=== PATIENT | male | born 1950 | race Caucasian/White ===

== ENCOUNTER 2018-03-01 00:18 | Observation (INO) | payer MEDICARE ==
[2018-03-01] MEDS ORDERED: Sodium Chloride 0.9% 1000 ML 1,000 ML ONE ×2 (01:04→02:14)
[2018-03-01] MEDS ORDERED: Sodium Chloride 0.9% 1000 ML 1,000 ML IV STA (01:07)
[2018-03-01] MEDS ORDERED: TYLENOL 325 MG PO STA (01:10)
[2018-03-01] MEDS ORDERED: Levofloxacin 500MG/100ML D5W 500 MG/100 ML BAG IV STA (01:10)
[2018-03-01] MEDS ORDERED: Sodium Chloride 0.9% 1000 ML 1,000 ML IV SCH ×2 (01:15→03:45)
[2018-03-01] MEDS ORDERED: Levofloxacin 500MG/100ML D5W 500 MG/100 ML BAG IV ONE (01:20)
[2018-03-01] MEDS ORDERED: TYLENOL 325 MG ONE (01:20)
[2018-03-01 01:25] LABS: INR 1.06 (0.8-3.0)
[2018-03-01 01:28] LABS: BASOPHIL % 0.1 % (0.0-0.4); Basophil (Absolute #) 0.01 (0-0.4); Eosinophil % 0.9 % (0.00-5.0); Eosinophil (Absolute #) 0.09 (0-0.5); Granulocyte Absolute (ANC) 7.89 (1.4-6.9); Granulocytes % 75.3 % (36.0-66.0); Hematocrit 44.2 % (42-50); Hemoglobin 15.4 gm/dl (12.5-18.0); Lymphocyte (Absolute #) 1.53 (1.0-4.6); Lymphocytes % 14.6 % (24.0-44.0); Mean Cell Volume 95.9 fl (78-100); Mean Corpuscular Hemoglobin 33.4 pg (26-32); Mean Corpuscular Hgb Concent. 34.8 g/dl (32-36); Mean Platelet Volume 10.5 fl (6-9.5); Monocyte (Absolute #) 0.95 (0.0-1.3); Monocytes % 9.1 % (0.0-12.0); Platelet Count 306 K/mm3 (150-450); Red Blood Count 4.61 M/mm3 (4.1-5.6); Red Cell Distribution Width 13.8 % (11.5-14.0); White Blood Count 10.5 K/mm3 (4.0-10.5)
[2018-03-01 01:30] LABS: ALBUMIN 4.1 g/dL (3.5-5.0); ALKALINE PHOSPHATASE 131 U/L (38-126); ANION GAP 13.7 MEQ/L (5-15); BLOOD UREA NITROGEN 18 mg/dL (9-20); CHLORIDE 104 mmol/L (98-107); Calcium 9.4 mg/dL (8.4-10.2); Carbon Dioxide 28 mmol/L (22-30); Glucose 107 mg/dL (74-106); Potassium 4.4 mmol/L (3.5-5.1); SGOT/AST 17 U/L (17-59); SGPT/ALT 18 U/L (0-50); SODIUM 141 mmol/L (137-145); Total Protein 7.6 g/dL (6.3-8.2)
--- NOTE | 2018-03-01 02:27 | ERPHSYRPT ---
- History of Present Illness Time Seen by Provider: 03/01/18 00:35 Source: [facility] records Exam Limitations: clinical condition Patient Subjective Stated Complaint: per pts nurse at mo, pt had temp of 102.4 tympanic tonight and has only had 25cc of urine from suprapubic cath in last 24 hours. states he has had leaking around cath and has redness to skin around suprapubic cath. Triage Nursing Assessment: pt awake. curses occasionally, no speaking otherwise. pt restless in bed. lt arm contraced. bilat foot drop noted. respirations nonlabored with lungs cta. suprapubic cath in place with no drainage noted in tubing. strong urine odor noted from pt. redness and excoriation noted around suprapubic cath. redness noted to bilat elbows. Physician History: PATIENT, A RESIDENT OF [employer], WITH HISTORY OF ANOXIA BRAIN SYNDROME, DEMENTIA, NEUROGENIC BLADDER, SUPRAPUBIC CATHETER WITH DRAINAGE FROM SITE, URINE AROUND CATHETER, FOUL ODOR WITH DECREASED URINE OUTPUT THROUGH CATHETER. HAS ASSOCIATED LOW GRADE FEVER. Timing/Duration: day(s) Activites at Onset: none Pain Radiation: none Severity of Pain-Max: none Severity of Pain-Current: none Associated Symptoms: fever Prior abdominal problems: none Sexual intercourse history: non-contributory Allergies/Adverse Reactions: tuberculin, purified protein deriva Allergy (Verified 03/01/18 01:02) Hx Tetanus, Diphtheria Vaccination/Date Given: No (uk) Hx Influenza Vaccination/Date Given: No (uk) Hx Pneumococcal Vaccination/Date Given: No (uk) Immunizations Up to Date: No () - Past Medical History Pertinent Past Medical History: Yes Neurological History: Dementia, Other History: Other Other Medical History: anoxic brain damage, 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 vascular dementia - Past Surgical History Other Surgical History: suprapubic cath placed- unknown what other surgeries pt has had. - Social History Smoking Status: Unknown if ever smoked Exposure to second hand smoke: No Drug Use: none Patient Lives Alone: No (from [facility]) - Review of Systems Constitutional: Fever Eyes: No Symptoms Ears, Nose, & Throat: No Symptoms Respiratory: No Symptoms, No Cough, No Dyspnea Cardiac: No Symptoms, No Chest Pain, No Edema, No Syncope Abdominal/Gastrointestinal: No Symptoms, No Abdominal Pain, No Nausea, No Vomiting, No Diarrhea Genitourinary Symptoms: Other, No Dysuria Musculoskeletal: No Symptoms, No Back Pain, No Neck Pain Skin: No Rash Neurological: No Dizziness, No Focal Weakness, No Sensory Changes Psychological: No Symptoms Endocrine: No Symptoms All Other Systems: Reviewed and Negative - Nursing Vital Signs Nursing Vital Signs: Initial Vital Signs Temperature 100.4 F 03/01/18 00:26 Pulse Rate 113 H 03/01/18 00:26 Respiratory Rate 18 03/01/18 00:26 Blood Pressure 122/73 03/01/18 00:26 O2 Sat by Pulse Oximetry 95 03/01/18 00:26 - Physical Exam General Appearance: no apparent distress, alert Eye Exam: PERRL/EOMI Ears, Nose, Throat Exam: pharynx normal, moist mucous membranes Neck Exam: normal inspection, supple Respiratory Exam: normal breath sounds, lungs clear Cardiovascular Exam: regular rate/rhythm, No edema Gastrointestinal/Abdomen Exam: soft (NO SUPRAPUBIC DISTENTION), normal bowel sounds, other (ERYTHRMA AROUND SUPRAPUBIC SITE), No tenderness Back Exam: normal inspection, No CVA tenderness Extremity Exam: normal inspection, normal range of motion, No pedal edema Neurologic Exam: alert, oriented x 3, cooperative, sensation nml, No motor deficits Skin Exam: normal color, warm, dry, No rash SpO2: 96 Oxygen Delivery: Room Air - Course EKG Interpreted by Me: RATE, Sinus Rhythm, Sinus Tach (RATE 104), NORMAL AXIS - Radiology Exams Chest X-ray Interpretation: Interpreted by me (LEFT INFRAHILAR INFILTRATE) Ordered Tests: Active Orders 24 hr Category Date Time Status EKG-ER Only STAT Care 03/01/18 01:10 Active IV Insertion STAT Care 03/01/18 01:10 Active CHEST 1 VIEW (PORTABLE) Stat Exams 03/01/18 01:11 Taken BLOOD CULTURE Stat Lab 03/01/18 01:21 Received CBC W DIFF Stat Lab 03/01/18 00:50 Completed CMP Stat Lab 03/01/18 00:50 Completed CULTURE,URINE Stat Lab 03/01/18 02:57 Received CULTURE,WOUND Stat Lab 03/01/18 01:51 Received Lactic Acid Stat Lab 03/01/18 01:07 Completed PROTIME WITH INR Stat Lab 03/01/18 00:50 Completed TROPONIN Q3H Lab 03/01/18 01:21 Completed TROPONIN Q3H Lab 03/01/18 04:15 Ordered TROPONIN Q3H Lab 03/01/18 07:15 Ordered TROPONIN Q3H Lab 03/01/18 10:15 Ordered TROPONIN Q3H Lab 03/01/18 13:15 Ordered UA W/ MICROSCOPIC Stat Lab 03/01/18 02:57 Completed Medication Summary Generic Name Dose Route Start Last Admin Trade Name Freq PRN Reason Stop Dose Admin Sodium Chloride 1,000 mls @ 999 mls/hr 03/01/18 01:15 03/01/18 03:13 Sodium Chloride 0.9% 1000 Ml IV 03/01/18 03:15 999 mls/hr .Q1H1M LEILA Administration Discontinued Medications Generic Name Dose Route Start Last Admin Trade Name Freq PRN Reason Stop Dose Admin Acetaminophen 650 mg 03/01/18 01:10 03/01/18 01:20 Tylenol 325 Mg PO 03/01/18 01:11 650 mg STAT STA Administration Acetaminophen Confirm 03/01/18 01:20 Tylenol 325 Mg Administered 03/01/18 01:21 Dose 650 mg .ROUTE .STK-MED ONE Sodium Chloride Confirm 03/01/18 01:04 Sodium Chloride 0.9% 1000 Ml Administered 03/01/18 01:05 Dose 1,000 mls @ ud .ROUTE .STK-MED ONE Sodium Chloride 1,000 mls @ 999 mls/hr 03/01/18 01:07 03/01/18 01:17 Sodium Chloride 0.9% 1000 Ml IV 03/01/18 02:07 999 mls/hr .Q1H1M STA Administration Levofloxacin/Dextrose 500 mg in 100 mls @ 100 mls/hr 03/01/18 01:10 03/01/18 01:21 Levofloxacin 500mg/100ml D5w IV 03/01/18 02:09 100 ml/hr STAT STA 100 mls/hr Administration Levofloxacin/Dextrose Confirm 03/01/18 01:20 Levofloxacin 500mg/100ml D5w Administered 03/01/18 01:21 Dose 500 mg in 100 mls @ ud IV .STK-MED ONE Lab/Rad Data: Laboratory Result Diagrams 03/01/18 00:50 03/01/18 00:50 Laboratory Results 03/01/18 03/01/18 03/01/18 Range/Units 02:57 01:21 01:07 WBC (4.0-10.5) K/mm3 RBC (4.1-5.6) M/mm3 Hgb (12.5-18.0) gm/dl Hct (42-50) % MCV (78-100) fl MCH (26-32) pg MCHC (32-36) g/dl RDW (11.5-14.0) % Plt Count (150-450) K/mm3 MPV (6-9.5) fl Gran % (36.0-66.0) % Eos # (Auto) (0-0.5) Absolute Lymphs (auto) (1.0-4.6) Absolute Monos (auto) (0.0-1.3) Lymphocytes % (24.0-44.0) % Monocytes % (0.0-12.0) % Eosinophils % (0.00-5.0) % Basophils % (0.0-0.4) % Absolute Granulocytes (1.4-6.9) Basophils # (0-0.4) PT (8.83-12.87) SECONDS INR (0.8-3.0) Sodium (137-145) mmol/L Potassium (3.5-5.1) mmol/L Chloride (98-107) mmol/L Carbon Dioxide (22-30) mmol/L Anion Gap (5-15) MEQ/L BUN (9-20) mg/dL Creatinine (0.66-1.25) mg/dL Estimated GFR ML/MIN Glucose (74-106) mg/dL Lactic Acid 1.3 (0.4-2.0) Calcium (8.4-10.2) mg/dL Total Bilirubin (0.2-1.3) mg/dL AST (17-59) U/L ALT (0-50) U/L Alkaline Phosphatase (38-126) U/L Troponin I < 0.012 (0.000-0.034) ng/mL Serum Total Protein (6.3-8.2) g/dL Albumin (3.5-5.0) g/dL Ur Collection Type VOID Urine Color YELLOW (YELLOW) Urine Appearance SLIGHTLY CLOUDY (CLEAR) Urine pH 8.0 (5-6) Ur Specific Chicken 1.005 (1.005-1.025) Urine Protein TRACE (Negative) Urine Ketones NEGATIVE (NEGATIVE) Urine Blood 250 (0-5) Lele/ul Urine Nitrite POSITIVE (NEGATIVE) Urine Bilirubin NEGATIVE (NEGATIVE) Urine Urobilinogen NORMAL (0-1) mg/dL Ur Leukocyte Esterase 2+ (NEGATIVE) Urine Microscopic RBC 15-25 (0-2) /HPF Urine Microscopic WBC 50-100 (0-5) /HPF Ur Epithelial Cells MODERATE (FEW) /HPF Urine Bacteria PACKED (NEGATIVE) /HPF Urine Mucus MODERATE (NEGATIVE) /HPF Urine Culture Reflexed YES (NO) Urine Glucose NEGATIVE (NEGATIVE) mg/dL 03/01/18 03/01/18 03/01/18 Range/Units 00:50 00:50 00:50 WBC 10.5 (4.0-10.5) K/mm3 RBC 4.61 (4.1-5.6) M/mm3 Hgb 15.4 (12.5-18.0) gm/dl Hct 44.2 (42-50) % MCV 95.9 (78-100) fl MCH 33.4 H (26-32) pg MCHC 34.8 (32-36) g/dl RDW 13.8 (11.5-14.0) % Plt Count 306 (150-450) K/mm3 MPV 10.5 H (6-9.5) fl Gran % 75.3 H (36.0-66.0) % Eos # (Auto) 0.09 (0-0.5) Absolute Lymphs (auto) 1.53 (1.0-4.6) Absolute Monos (auto) 0.95 (0.0-1.3) Lymphocytes % 14.6 L (24.0-44.0) % Monocytes % 9.1 (0.0-12.0) % Eosinophils % 0.9 (0.00-5.0) % Basophils % 0.1 (0.0-0.4) % Absolute Granulocytes 7.89 H (1.4-6.9) Basophils # 0.01 (0-0.4) PT 12.3 (8.83-12.87) SECONDS INR 1.06 (0.8-3.0) Sodium 141 (137-145) mmol/L Potassium 4.4 (3.5-5.1) mmol/L Chloride 104 (98-107) mmol/L Carbon Dioxide 28 (22-30) mmol/L Anion Gap 13.7 (5-15) MEQ/L BUN 18 (9-20) mg/dL Creatinine 0.90 (0.66-1.25) mg/dL Estimated GFR > 60.0 ML/MIN Glucose 107 H (74-106) mg/dL Lactic Acid (0.4-2.0) Calcium 9.4 (8.4-10.2) mg/dL Total Bilirubin 0.30 (0.2-1.3) mg/dL AST 17 (17-59) U/L ALT 18 (0-50) U/L Alkaline Phosphatase 131 H (38-126) U/L Troponin I (0.000-0.034) ng/mL Serum Total Protein 7.6 (6.3-8.2) g/dL Albumin 4.1 (3.5-5.0) g/dL Ur Collection Type Urine Color (YELLOW) Urine Appearance (CLEAR) Urine pH (5-6) Ur Specific Chicken (1.005-1.025) Urine Protein (Negative) Urine Ketones (NEGATIVE) Urine Blood (0-5) Lele/ul Urine Nitrite (NEGATIVE) Urine Bilirubin (NEGATIVE) Urine Urobilinogen (0-1) mg/dL Ur Leukocyte Esterase (NEGATIVE) Urine Microscopic RBC (0-2) /HPF Urine Microscopic WBC (0-5) /HPF Ur Epithelial Cells (FEW) /HPF Urine Bacteria (NEGATIVE) /HPF Urine Mucus (NEGATIVE) /HPF Urine Culture Reflexed (NO) Urine Glucose (NEGATIVE) mg/dL - Progress Progress: pain not gone completely Progress Note: 03/01/18 02:44 AFTER 2 SETS OF BLOOD CULTURE ADMINISTERED LEVAQUIN 500MG IVPB , PLACED ONTO SEPSIS PROTOCOL NORMAL SALINE 2 LITERS OVER 2 HOURS, LACTIC ACID 1.3, TAKEN OFF SEPSIS PROTOCOL Discussed with : Desean (DISCUSSED WITH DR LOVELACE AT 0330 FOR OBSERVATION) - Departure Time of Disposition: 03:40 Departure Disposition: Observation Clinical Impression: URINARY TRACT INFECTION, SUPRAPUBIC CELLULITIS Condition: Stable Critical Care Time: No Referrals: AYSE CLEMENT [Primary Care Provider] -
[2018-03-01 03:16] LABS: Appearance SLIGHTLY CLOUDY (CLEAR); Specific Gravity 1.005 (1.005-1.025)
[2018-03-01 03:17] LABS: Bacteria PACKED /HPF (NEGATIVE); Bilirubin NEGATIVE (NEGATIVE); Blood 250 Ery/ul (0-5); Epithelial Cells MODERATE /HPF (FEW); Glucose NEGATIVE (NEGATIVE); Ketones NEGATIVE (NEGATIVE); Leukocyte Esterase 2+ (NEGATIVE); Mucus MODERATE /HPF (NEGATIVE); Nitrite POSITIVE (NEGATIVE); Protein,Urine Dip TRACE (Negative); RBC 15-25 /HPF (0-2); Urobilinogen NORMAL mg/dL (0-1); WBC 50-100 /HPF (0-5)
[2018-03-01] MEDS ORDERED: TYLENOL 325 MG PO PRN ×2 (03:41→09:24)
[2018-03-01] MEDS ORDERED: Norco 10/325 MG Tablet PO PRN (03:45)
[2018-03-01] MEDS ORDERED: Cyclobenzaprine 10 MG PO PRN (03:46)
--- NOTE | 2018-03-01 07:55 | PCM.HP ---
History of Present Illness - Chief Complaint Chief Complaint: UTI, suprapubic cellulitis Date: 03/01/18 History of Present Illness: is a 67 year old male. with history of anoxic brain injury many years ago has been a ferry terminal agent resident at [facility] and has a suprapubic catheter that has been intermittently leaking for several years and yesterday he was noted to be more somnolent not eating or drinking and a fever to 102. He was only making small amount of urine from the patel reported as 25 cc at [facility]. He had catheter flushing attempted with no change in urine output. he was sent to ED. He was diagnosed with cellulites around the suprapubic site and UTI and admitted. He currently opens his eyes and tracks but does not answer any specific questions. - Review of Systems Constitutional: Other (unable to obtain secondary to mental status) Medications & Allergies Home Medications: Home Medication List Acetaminophen 325 mg [Tylenol 325 mg] 650 mg PO Q6HPRN PRN 03/01/18 [ History Confirmed 03/01/18] Amantadine HCl [Amantadine] 100 mg PO BID 03/01/18 [History Confirmed 03/01/18] Bisacodyl 10 mg PO DAILY PRN PRN 03/01/18 [History Confirmed 03/01/18] Bisacodyl 10 mg [Dulcolax 10 MG SUPP] 10 mg OH UD PRN 03/01/18 [History Confirmed 03/01/18] Cyclobenzaprine HCl [Flexeril] 10 mg PO TID 03/01/18 [History Confirmed 03/01/18 ] Divalproex Sodium [Depakote Sprinkle] 375 mg PO BID 03/01/18 [History Confirmed 03/01/18] Divalproex Sodium [Depakote Sprinkle] 500 mg PO DAILY 03/01/18 [History Confirmed 03/01/18] Docusate Sodium 50 mg/5 ml [COLACE Liquid 50 MG/5 ML] 10 ml PO BID [History Confirmed 03/01/18] Furosemide 20 mg [Lasix 20 mg] 20 mg PO DAILY 03/01/18 [History Confirmed 03/01/18] Hydrocodone/Acetaminophen [Hydrocodone-Acetamin 10-325 mg] 1 tab PO QID [History Confirmed 03/01/18] Magnesium Hydroxide 30 ml [Milk of Magnesia 30 ml] 30 ml PO UD PRN [History Confirmed 03/01/18] Multivit-Min/FA/Lycopen/Lutein [Certavite Sr-Antioxidant Tab] 1 tab PO DAILY [History Confirmed 03/01/18] NaCl 0.9% 10 ML FLUSH [Sodium Chloride 0.9% 10 ML FLUSH Syringe] 30 ml IRRIGATION UD PRN 03/01/18 [History Confirmed 03/01/18] Polyethylene Glycol 3350 17 gm [Miralax Powder 17GM PACKET] 17 gm PO DAILY [History Confirmed 03/01/18] Promethazine HCl [Promethegan] 25 mg RC Q4HPRN PRN 03/01/18 [History Confirmed 03/01/18] Ranitidine HCl [Zantac] 150 mg PO DAILY 03/01/18 [History Confirmed 03/01/18] Sennosides [Senna] 17.2 mg PO DAILY 03/01/18 [History Confirmed 03/01/18] diazePAM [Diazepam] 10 mg PO TID 03/01/18 [History Confirmed 03/01/18] Allergies/Adverse Reactions: Allergies Allergy/AdvReac Type Severity Reaction Status Date / Time tuberculin, purified protein Allergy Verified 03/01/18 01:02 deriva - Past Medical History Past Medical History: Yes Neurological History: Dementia, Other History: Other Comment: anoxic brain damage, 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 vascular dementia. recalled from ER/[facility] record - Past Surgical History Other Surgical History: suprapubic cath placed- unknown what other surgeries pt has had. recalled from ER/[facility] record - Social History Smoking Status: Unknown if ever smoked Exposure to second hand smoke: No Alcohol: None Drug Use: none - Physical Exam Vital Signs: Vital Signs - 24 hr Temp Pulse Resp BP Pulse Ox 03/01/18 07:14 97.3 F 91 H 18 97/53 97 03/01/18 04:47 98.8 F 112 H 19 130/87 95 03/01/18 03:54 96 03/01/18 03:05 94 H 22 105/68 95 03/01/18 01:44 107 H 18 112/74 96 03/01/18 00:26 100.4 F 113 H 18 122/73 95 General Appearance: no apparent distress, alert Neurologic Exam: No oriented x 3, No cooperative Eye Exam: eyes nml inspection, No scleral icterus, No pale conjunctivae Ears, Nose, Throat Exam: moist mucous membranes Neck Exam: non-tender, supple Respiratory Exam: normal breath sounds, lungs clear, No respiratory distress Cardiovascular Exam: regular rate/rhythm, normal heart sounds, normal peripheral pulses, No edema Gastrointestinal/Abdomen Exam: soft, normal bowel sounds, tenderness, No distention, No guarding Male Genitalia Exam: other (warty growth at site of suprapubic catheter with redness and purulent drainage around the catheter site with catheter with about 25 cc of milky yellow urine) Extremity Exam: normal inspection, No calf tenderness, No pedal edema Skin Exam: normal color, warm, dry, other (redness and warmth around the suprapubic catheter site.) Results - Labs Lab/Micro Results: Lab Results-Last 24 Hours 03/01/18 03/01/18 03/01/18 Range/Units 00:50 00:50 00:50 WBC 10.5 (4.0-10.5) K/mm3 RBC 4.61 (4.1-5.6) M/mm3 Hgb 15.4 (12.5-18.0) gm/dl Hct 44.2 (42-50) % MCV 95.9 (78-100) fl MCH 33.4 H (26-32) pg MCHC 34.8 (32-36) g/dl RDW 13.8 (11.5-14.0) % Plt Count 306 (150-450) K/mm3 MPV 10.5 H (6-9.5) fl Gran % 75.3 H (36.0-66.0) % Eos # (Auto) 0.09 (0-0.5) Absolute Lymphs (auto) 1.53 (1.0-4.6) Absolute Monos (auto) 0.95 (0.0-1.3) Lymphocytes % 14.6 L (24.0-44.0) % Monocytes % 9.1 (0.0-12.0) % Eosinophils % 0.9 (0.00-5.0) % Basophils % 0.1 (0.0-0.4) % Absolute Granulocytes 7.89 H (1.4-6.9) Basophils # 0.01 (0-0.4) PT 12.3 (8.83-12.87) SECONDS INR 1.06 (0.8-3.0) Sodium 141 (137-145) mmol/L Potassium 4.4 (3.5-5.1) mmol/L Chloride 104 (98-107) mmol/L Carbon Dioxide 28 (22-30) mmol/L Anion Gap 13.7 (5-15) MEQ/L BUN 18 (9-20) mg/dL Creatinine 0.90 (0.66-1.25) mg/dL Estimated GFR > 60.0 ML/MIN Glucose 107 H (74-106) mg/dL Lactic Acid (0.4-2.0) Calcium 9.4 (8.4-10.2) mg/dL Total Bilirubin 0.30 (0.2-1.3) mg/dL AST 17 (17-59) U/L ALT 18 (0-50) U/L Alkaline Phosphatase 131 H (38-126) U/L Troponin I (0.000-0.034) ng/mL Serum Total Protein 7.6 (6.3-8.2) g/dL Albumin 4.1 (3.5-5.0) g/dL Ur Collection Type Urine Color (YELLOW) Urine Appearance (CLEAR) Urine pH (5-6) Ur Specific Babb (1.005-1.025) Urine Protein (Negative) Urine Ketones (NEGATIVE) Urine Blood (0-5) Lele/ul Urine Nitrite (NEGATIVE) Urine Bilirubin (NEGATIVE) Urine Urobilinogen (0-1) mg/dL Ur Leukocyte Esterase (NEGATIVE) Urine Microscopic RBC (0-2) /HPF Urine Microscopic WBC (0-5) /HPF Ur Epithelial Cells (FEW) /HPF Urine Bacteria (NEGATIVE) /HPF Urine Mucus (NEGATIVE) /HPF Urine Culture Reflexed (NO) Urine Glucose (NEGATIVE) mg/dL Valproic Acid (50-100) ug/mL 03/01/18 03/01/18 03/01/18 Range/Units 01:07 01:21 02:57 WBC (4.0-10.5) K/mm3 RBC (4.1-5.6) M/mm3 Hgb (12.5-18.0) gm/dl Hct (42-50) % MCV (78-100) fl MCH (26-32) pg MCHC (32-36) g/dl RDW (11.5-14.0) % Plt Count (150-450) K/mm3 MPV (6-9.5) fl Gran % (36.0-66.0) % Eos # (Auto) (0-0.5) Absolute Lymphs (auto) (1.0-4.6) Absolute Monos (auto) (0.0-1.3) Lymphocytes % (24.0-44.0) % Monocytes % (0.0-12.0) % Eosinophils % (0.00-5.0) % Basophils % (0.0-0.4) % Absolute Granulocytes (1.4-6.9) Basophils # (0-0.4) PT (8.83-12.87) SECONDS INR (0.8-3.0) Sodium (137-145) mmol/L Potassium (3.5-5.1) mmol/L Chloride (98-107) mmol/L Carbon Dioxide (22-30) mmol/L Anion Gap (5-15) MEQ/L BUN (9-20) mg/dL Creatinine (0.66-1.25) mg/dL Estimated GFR ML/MIN Glucose (74-106) mg/dL Lactic Acid 1.3 (0.4-2.0) Calcium (8.4-10.2) mg/dL Total Bilirubin (0.2-1.3) mg/dL AST (17-59) U/L ALT (0-50) U/L Alkaline Phosphatase (38-126) U/L Troponin I < 0.012 (0.000-0.034) ng/mL Serum Total Protein (6.3-8.2) g/dL Albumin (3.5-5.0) g/dL Ur Collection Type VOID Urine Color YELLOW (YELLOW) Urine Appearance SLIGHTLY CLOUDY (CLEAR) Urine pH 8.0 (5-6) Ur Specific Babb 1.005 (1.005-1.025) Urine Protein TRACE (Negative) Urine Ketones NEGATIVE (NEGATIVE) Urine Blood 250 (0-5) Lele/ul Urine Nitrite POSITIVE (NEGATIVE) Urine Bilirubin NEGATIVE (NEGATIVE) Urine Urobilinogen NORMAL (0-1) mg/dL Ur Leukocyte Esterase 2+ (NEGATIVE) Urine Microscopic RBC 15-25 (0-2) /HPF Urine Microscopic WBC 50-100 (0-5) /HPF Ur Epithelial Cells MODERATE (FEW) /HPF Urine Bacteria PACKED (NEGATIVE) /HPF Urine Mucus MODERATE (NEGATIVE) /HPF Urine Culture Reflexed YES (NO) Urine Glucose NEGATIVE (NEGATIVE) mg/dL Valproic Acid (50-100) ug/mL 03/01/18 03/01/18 Range/Units 03:58 03:58 WBC (4.0-10.5) K/mm3 RBC (4.1-5.6) M/mm3 Hgb (12.5-18.0) gm/dl Hct (42-50) % MCV (78-100) fl MCH (26-32) pg MCHC (32-36) g/dl RDW (11.5-14.0) % Plt Count (150-450) K/mm3 MPV (6-9.5) fl Gran % (36.0-66.0) % Eos # (Auto) (0-0.5) Absolute Lymphs (auto) (1.0-4.6) Absolute Monos (auto) (0.0-1.3) Lymphocytes % (24.0-44.0) % Monocytes % (0.0-12.0) % Eosinophils % (0.00-5.0) % Basophils % (0.0-0.4) % Absolute Granulocytes (1.4-6.9) Basophils # (0-0.4) PT (8.83-12.87) SECONDS INR (0.8-3.0) Sodium (137-145) mmol/L Potassium (3.5-5.1) mmol/L Chloride (98-107) mmol/L Carbon Dioxide (22-30) mmol/L Anion Gap (5-15) MEQ/L BUN (9-20) mg/dL Creatinine (0.66-1.25) mg/dL Estimated GFR ML/MIN Glucose (74-106) mg/dL Lactic Acid (0.4-2.0) Calcium (8.4-10.2) mg/dL Total Bilirubin (0.2-1.3) mg/dL AST (17-59) U/L ALT (0-50) U/L Alkaline Phosphatase (38-126) U/L Troponin I < 0.012 (0.000-0.034) ng/mL Serum Total Protein (6.3-8.2) g/dL Albumin (3.5-5.0) g/dL Ur Collection Type Urine Color (YELLOW) Urine Appearance (CLEAR) Urine pH (5-6) Ur Specific Babb (1.005-1.025) Urine Protein (Negative) Urine Ketones (NEGATIVE) Urine Blood (0-5) Lele/ul Urine Nitrite (NEGATIVE) Urine Bilirubin (NEGATIVE) Urine Urobilinogen (0-1) mg/dL Ur Leukocyte Esterase (NEGATIVE) Urine Microscopic RBC (0-2) /HPF Urine Microscopic WBC (0-5) /HPF Ur Epithelial Cells (FEW) /HPF Urine Bacteria (NEGATIVE) /HPF Urine Mucus (NEGATIVE) /HPF Urine Culture Reflexed (NO) Urine Glucose (NEGATIVE) mg/dL Valproic Acid 57.8 (50-100) ug/mL - Radiology Impressions Radiology Exams & Impressions: Radiology Procedures Category Date Time Status CHEST 1 VIEW (PORTABLE) Stat Exams 03/01/18 01:11 Taken Assessment/Plan (1) UTI (urinary tract infection) Current Visit: Yes Status: Acute Assessment & Plan: received levaquin and iv fluids in ED currently afebrile will culture the urine has had blood cultures will also culture the drainage around the suprapubic catheter get bladder ultrasound to check to ensure functioning of the catheter Code(s): N39.0 - URINARY TRACT INFECTION, SITE NOT SPECIFIED (2) Cellulitis Current Visit: Yes Status: Acute Qualifiers: Site of cellulitis: trunk Code(s): L03.90 - CELLULITIS, UNSPECIFIED (3) Anoxic brain injury Current Visit: Yes Status: Chronic
--- NOTE | 2018-03-01 08:54 | XRAY ---
Indication: Possible sepsis. Comparison: None Portable chest clear with incidental left mid lung calcified granuloma. Heart is not enlarged. Bony thorax intact with mild osteopenia and degenerative changes. Impression: Nonacute chest with chronic features.
--- NOTE | 2018-03-01 08:56 | XRAY ---
Indication: Decreased urinary output. Two-dimensional ultrasound of the urinary bladder performed. Comparison: None There is a suprapubic catheter in situ. Bladder is nominally distended with a volume 137 cc. No focal bladder mass. Normal bilateral ureteral jets. Impression: Small bladder volume with suprapubic catheter in situ. Remaining bladder sonogram is negative.
[2018-03-01] MEDS ORDERED: DULCOLAX 5 MG PO PRN (09:24)
[2018-03-01] MEDS ORDERED: MILK OF MAGNESIA 30 ML PO PRN (09:24)
[2018-03-01] MEDS ORDERED: MEDICATION INTERVENTION MC SCH (09:45)
[2018-03-01] MEDS ORDERED: COLACE Liquid 50 MG/5 ML PO SCH (10:00)
[2018-03-01] MEDS ORDERED: DIAZEPAM 10 MG PO SCH (10:00)
[2018-03-01] MEDS ORDERED: NON-FORMULARY ITEM (Ranitidine Hcl [Zantac] 150 MG) PO SCH (10:00)
[2018-03-01] MEDS ORDERED: Dulcolax 10 MG SUPP PR SCH (10:00)
[2018-03-01] MEDS ORDERED: Depakene 250 MG/5 ML Syrup PO SCH (10:00)
[2018-03-01] MEDS ORDERED: NON-FORMULARY ITEM (Cyclobenzaprine Hcl [Flexeril] 10 MG) PO SCH (10:00)
[2018-03-01] MEDS ORDERED: DIVALPROEX SODIUM 375 MG PO SCH (10:00)
[2018-03-01] MEDS ORDERED: Miralax Powder 17GM PACKET PO SCH (10:00)
[2018-03-01] MEDS ORDERED: Valium 5 MG PO SCH (10:00)
[2018-03-01] MEDS ORDERED: DIVALPROEX SODIUM 500 MG PO SCH (10:00)
[2018-03-01] MEDS: Valium 5 MG PO SCH ×3 (10:05→22:53)
[2018-03-01] MEDS: Pepcid 20 MG PO SCH (10:05)
[2018-03-01] MEDS: SENOKOT 8.6 MG PO SCH (10:05)
[2018-03-01] MEDS: ENOXAPARIN SODIUM SQ SCH (10:05)
[2018-03-01] MEDS: LASIX 20 MG PO SCH (10:05)
[2018-03-01] MEDS: COLACE Liquid 50 MG/5 ML PO SCH ×2 (10:05→22:13)
[2018-03-01] MEDS: Cyclobenzaprine 10 MG PO SCH ×3 (10:05→22:53)
[2018-03-01] MEDS ORDERED: Levofloxacin 500MG/100ML D5W 500 MG/100 ML BAG IV SCH (22:00)
[2018-03-02 06:59] VITALS: BP 98/53; PULSE 66; O2SAT 98
--- NOTE | 2018-03-02 08:16 | PCM.DCORD ---
- Discharge Discharge Date: 03/02/18 Disposition: DC TO ANY "OTHER" SKILLED NURSING Condition: Stable Prescriptions: New Levofloxacin [Levaquin] 500 mg PO DAILY 8 Days #8 tablet Continue Sennosides [Senna] 17.2 mg PO DAILY Amantadine HCl [Amantadine] 100 mg PO BID Promethazine HCl [Promethegan] 25 mg RC Q4HPRN PRN PRN Reason: Nausea/Vomiting Polyethylene Glycol 3350 17 gm [Miralax Powder 17GM PACKET] 17 gm PO DAILY NaCl 0.9% 10 ML FLUSH [Sodium Chloride 0.9% 10 ML FLUSH Syringe] 30 ml IRRIGATION UD PRN PRN Reason: CLOGGED OR LEAKING CATHETER Hydrocodone/Acetaminophen [Hydrocodone-Acetamin 10-325 mg] 1 tab PO QID Magnesium Hydroxide 30 ml [Milk of Magnesia 30 ml] 30 ml PO UD PRN PRN Reason: Constipation Furosemide 20 mg [Lasix 20 mg] 20 mg PO DAILY Cyclobenzaprine HCl [Flexeril] 10 mg PO TID diazePAM [Diazepam] 10 mg PO TID Docusate Sodium 50 mg/5 ml [COLACE Liquid 50 MG/5 ML] 10 ml PO BID Multivit-Min/FA/Lycopen/Lutein [Certavite Sr-Antioxidant Tab] 1 tab PO DAILY Bisacodyl 10 mg [Dulcolax 10 MG SUPP] 10 mg [place] UD PRN PRN Reason: Constipation Bisacodyl 10 mg PO DAILY PRN PRN PRN Reason: Constipation Acetaminophen 325 mg [Tylenol 325 mg] 650 mg PO Q6HPRN PRN PRN Reason: pain/fever Ranitidine HCl [Zantac] 150 mg PO DAILY Divalproex Sodium [Depakote Sprinkle] 375 mg PO BID Divalproex Sodium [Depakote Sprinkle] 500 mg PO DAILY
[2018-03-02] MEDS: Valium 5 MG PO SCH (09:06)
[2018-03-02] MEDS: Pepcid 20 MG PO SCH (09:06)
[2018-03-02] MEDS: LASIX 20 MG PO SCH (09:06)
[2018-03-02] MEDS: ENOXAPARIN SODIUM SQ SCH (09:06)
[2018-03-02] MEDS: SENOKOT 8.6 MG PO SCH (09:06)
[2018-03-02] MEDS: Cyclobenzaprine 10 MG PO SCH (09:06)
[2018-03-02] MEDS: COLACE Liquid 50 MG/5 ML PO SCH (09:06)
--- NOTE | 2018-03-02 21:48 | PCM.DS ---
Discharge Summary Date of Admission: 03/01/18 04:17 Date of Discharge: 03/02/18 Admitting Physician: AYSE CLEMENT Primary Care Provider: AYSE CLEMENT Allergies Allergies tuberculin, purified protein deriva Allergy (Verified 03/01/18 01:02) Hospital Summary - Hospital Course Hospital Course: He resides at [facility] after previous anoxic brain injury and debility with spastic quaraperesis and aphasia. He has a chronic indwelling patel catheter and had doen ok with it except had chronic leaking around it. He became more weak and less responsive at F and was not eating or drinking which is not likey him. he was not having output from the patel and changed the catheter with only 25 cc out. he was then found to be febrile to 102 and he was sent to ED. There he was found to have drainage around the catheter site as well as redness and warmth of the skin surrounding it as well as UA consistent with UTI. he was having urine return out of the penis but little out of the catheter. He had Bladder ultrasound with catheter in situ and no abnormalities. He was treated with levaquin for the UTI and iv fluids. The catheter was repositioned again and then began draining and no further output from the penis. He was no longer febrile for 24 hours and showed evidence of improved cognition and was discharged back to [facility] with the culture results still pending. - Vitals & Intake/Output Vital Signs: Vital Signs Temperature 98.1 F 03/02/18 06:57 Pulse Rate 66 03/02/18 06:57 Respiratory Rate 18 03/02/18 06:57 Blood Pressure 98/53 03/02/18 06:57 O2 Sat by Pulse Oximetry 98 03/02/18 06:57 Intake & Output: Intake & Output 02/28/18 03/01/18 03/02/18 03/03/18 11:59 11:59 11:59 11:59 Intake Total 0 2334 Output Total 2950 Balance 0 -616 Weight 64.2 kg - Lab Result Diagrams: 03/01/18 00:50 03/01/18 00:50 Micro Results-Entire Visit: Microbiology 03/01/18 01:21 Blood Culture - Preliminary Blood NO GROWTH TO DATE 03/01/18 00:50 Blood Culture - Preliminary Blood NO GROWTH TO DATE 03/01/18 08:15 Wound Culture - Preliminary Catheter Site - Front GRAM NEGATIVE ID AND SENSITIVITY PENDING 03/01/18 02:57 Urine Culture - Preliminary Urine, Void GRAM NEGATIVE ID AND SENSITIVITY PENDING - Radiology Exams Ordered Rad Exams-Entire Visit: Radiology Procedures Category Date Time Status BLADDER [US] Routine Exams 03/01/18 08:32 Completed CHEST 1 VIEW (PORTABLE) Stat Exams 03/01/18 01:11 Completed Discharge Exam General Appearance: no apparent distress Neurologic Exam: alert, other (spastic quadraperesis, expressive aphasia), No oriented x 3, No cooperative Skin Exam: warm, dry Eye Exam: No scleral icterus, No pale conjunctivae Ears, Nose, Throat Exam: moist mucous membranes Neck Exam: non-tender, supple Respiratory Exam: lungs clear, No respiratory distress Cardiovascular Exam: regular rate/rhythm, normal heart sounds Gastrointestinal/Abdomen Exam: soft, normal bowel sounds, No tenderness Male Genitalia Exam: other (suprapubic catheter with redness improved still with milky yellow surrounding drainage and wart like lesion at site and cloudy yellow urine from the catheter) Final Diagnosis/Problem List - Final Discharge Diagnosis/Problem (1) UTI (urinary tract infection) Status: Acute Onset Date: ~03/01/18 (2) Cellulitis Status: Acute Onset Date: ~03/01/18 (3) Anoxic brain injury Status: Chronic Onset Date: ~03/01/18 - Discharge Discharge Date: 03/02/18 Disposition: DC TO ANY "OTHER" SHELTER Condition: Stable Prescriptions: New Levofloxacin [Levaquin] 500 mg PO DAILY 8 Days #8 tablet Continue Sennosides [Senna] 17.2 mg PO DAILY Amantadine HCl [Amantadine] 100 mg PO BID Promethazine HCl [Promethegan] 25 mg RC Q4HPRN PRN PRN Reason: Nausea/Vomiting Polyethylene Glycol 3350 17 gm [Miralax Powder 17GM PACKET] 17 gm PO DAILY NaCl 0.9% 10 ML FLUSH [Sodium Chloride 0.9% 10 ML FLUSH Syringe] 30 ml IRRIGATION UD PRN PRN Reason: CLOGGED OR LEAKING CATHETER Hydrocodone/Acetaminophen [Hydrocodone-Acetamin 10-325 mg] 1 tab PO QID Magnesium Hydroxide 30 ml [Milk of Magnesia 30 ml] 30 ml PO UD PRN PRN Reason: Constipation Furosemide 20 mg [Lasix 20 mg] 20 mg PO DAILY Cyclobenzaprine HCl [Flexeril] 10 mg PO TID diazePAM [Diazepam] 10 mg PO TID Docusate Sodium 50 mg/5 ml [COLACE Liquid 50 MG/5 ML] 10 ml PO BID Multivit-Min/FA/Lycopen/Lutein [Certavite Sr-Antioxidant Tab] 1 tab PO DAILY Bisacodyl 10 mg [Dulcolax 10 MG SUPP] 10 mg SD UD PRN PRN Reason: Constipation Bisacodyl 10 mg PO DAILY PRN PRN PRN Reason: Constipation Acetaminophen 325 mg [Tylenol 325 mg] 650 mg PO Q6HPRN PRN PRN Reason: pain/fever Ranitidine HCl [Zantac] 150 mg PO DAILY Divalproex Sodium [Depakote Sprinkle] 375 mg PO BID Divalproex Sodium [Depakote Sprinkle] 500 mg PO DAILY Additional Instructions: CONTINUE ALL PREVIOUS SHELTER ORDERS Follow up with: AYSE CLEMENT [Primary Care Provider] - 1 Week Forms: Transfer Record [facility]
== END 2018-03-02 10:30 | disposition home or self-care (01) ==
LOC: ED 00:18 → MED SURG 04:17
PROVIDERS: ADMIT Family Medicine; ATTEND Family Medicine
DX: N39.0 Urinary tract infection, site not specified (principal); L03.319 Cellulitis of trunk, unspecified; G93.1 Anoxic brain damage, not elsewhere classified; F01.50 Vascular dementia, unspecified severity, without behavioral disturbance, psychotic disturbance, mood disturbance, and anxiety
CPT/HCPCS: 36000; 36415; 71045; 76705; 80053; 80164; 81001; 83605; 84484; 85025; 85610; 87040; 87070; 87077; 87086; 87186; 93005; 96360; 96361; 96365; 99285; G0378; J1650; J1956; A9270-GY